=== PATIENT | female | born 1975 | race Caucasian/White ===

== ENCOUNTER 2021-04-16 17:26 | Emergency (ER) | payer SELFPAY ==
[2021-04-16] MEDS ORDERED: MOTRIN600 MG PO (21:06)
[2021-04-16] MEDS ORDERED: CLOTRIMAZOLE TOP (21:06)
== END 2021-04-16 21:53 | disposition home or self-care (01) ==
LOC: FER 17:26
DX: B37.89 Other sites of candidiasis (principal); F17.210 Nicotine dependence, cigarettes, uncomplicated; Z21 Asymptomatic human immunodeficiency virus [HIV] infection status
CPT/HCPCS: 99283; Q0162